=== PATIENT | female | born 1990 | race Caucasian/White ===

== ENCOUNTER → 2017-11-03 09:50 | Outpatient (CLI) | payer OTHER, SELFPAY ==
[2017-11-11 13:32] LABS: AFP 39.9 ng/mL; Brief History NOT GIVEN; Calc Gestational Age 18.4; Hx of Neural Tube Defect N; Inhibin A Value 95 pg/mL; Method of Estimation US; Prev Pregnancy with Down Syndr NOT GIVEN
== END ==
DX: Z34.82 Encounter for supervision of other normal pregnancy, second trimester (principal); Z3A.18 18 weeks gestation of pregnancy
CPT/HCPCS: 36415; 82105; 82677; 84702; 86336

== ENCOUNTER → 2018-01-29 12:00 | Outpatient (CLI) | payer OTHER, SELFPAY ==
[2018-01-29 13:39] LABS: Hematocrit 33.4 % (36-46); Hemoglobin 11.6 g/dL (12.0-16.0)
[2018-01-29 14:14] LABS: GTT (PREG) 1 Hour PP 50gm Dose 91 mg/dL (76-139)
== END ==
DX: Z3A.26 26 weeks gestation of pregnancy (principal)
CPT/HCPCS: 36415; 82950; 85014; 85018

== ENCOUNTER 2018-03-26 11:25 | Inpatient (IN) | payer OTHER, SELFPAY ==
[2018-03-26] VITALS (7 sets, daily range): BP systolic 109–126; BP diastolic 60–79; PULSE 70–85; RESP 11–16; TEMP 36; O2SAT 97
--- NOTE | 2018-03-26 | PATH_ITS ---
[facility] Accession Number: [id number] . 01 Material submitted: . PART A: LEFT FALLOPIAN TUBE SEGMENT PART B: RIGHT FALLOPIAN TUBE SEGMENT . 02 Diagnosis: A-B. Segments of Left and Right Fallopian Tubes (Sterilization Procedure): No significant pathologic change in either specimen. MRV/03/28/2018 . 02 Electronically signed: . Douglas Sykes MD, Pathologist NPI- [id number] . 01 Gross description: . Received two formalin-filled containers, both labeled with the patient's name: . A. In a container labeled left fallopian tube segment, the specimen consists of a 0.4 cm in diameter by 1.0 cm in length, cylindrical shaped portion of tissue, which is inked blue, trisected, and entirely submitted in cassette A. B. In a container labeled right fallopian tube segment, the specimen consists of a 0.4 cm in diameter by 0.4 cm in length, rough, partial cylindrical-shaped portion of tissue, which is inked blue, bisected, and entirely submitted in cassette B. ([id number]) /FRR . 02 Pathologist provided ICD-10: Z30.2 . 02 CPT . 448851, [id number] Specimen Comment: A duplicate report has been generated due to demographic updates. Performed at: 01 [facility] [address] [id number] MD Karri Munoz MD Phone: [phone] Performed at: 02 [facility] [address] [place], [place] [id number] MD Shivam Turcios MD Phone: [phone]
[2018-03-26 12:43] LABS: Add Manual Diff / Slide Review NO; Basophils Percent Auto 0.2 % (0-2); Eosinophils Percent Auto 0.4 % (2-4); Hematocrit 34.5 % (36-46); Hemoglobin 11.9 g/dL (12.0-16.0); Lymphocytes Percent Auto 16.3 % (25-40); Mean Corpuscular HGB Conc 34.6 % (30-36); Mean Corpuscular Hemoglobin 32.7 PG (26-34); Mean Corpuscular Volume 94.5 fL (80-100); Monocytes Percent Auto 7.9 % (3-14); Neutrophils Absolute Auto 5700 /uL (3000-5900); Neutrophils Percent Auto 75.2 % (50-75); Platelet Count 150 X10^3/uL (150-400); Red Blood Cell Count 3.65 X10^6/uL (4.0-5.2); Red Cell Distribution Width 14.3 % (11.6-14.8); White Blood Cell Count 7.6 X10^3/uL (4.5-11.0)
--- NOTE | 2018-03-26 12:52 | SUR.OPER ---
Supine on Padded OR bed, head on pillow, safety belt at thigh, arms secured on padded arm boards at <90 degrees abduction. Bump under right buttock. Legs uncrossed with pillow under knees, gel pad to heels, tape over blanket to lower legs.
[2018-03-26] MEDS: CEFOTETAN 2 GM/50 ML PIGGYBACK IV (13:08)
[2018-03-26] MEDS: LACTATED RINGERS 1,000 ML 100 ML IV ×3 (13:26→16:58)
--- NOTE | 2018-03-26 14:15 | SUR.OPER ---
TOB live female @1330. Cord blood x 2 and placenta to L&D with CREDIT CARD CLERK
--- NOTE | 2018-03-26 14:28 | P.OP_ITS ---
Procedure: Procedures Operation Date: 03/26/18 13:30 Actual Procedures Side Surgeon p Section-Repeat and Bilateral tubal ligation Ishmael Johnson MD Indications: Term intrauterine History of prior section Multiparity desires sterilization Surgeon: Ishmael Johnson Life Assurance Representative: Nikki Izaguirre Anesthesia Type: Spinal Operative Notes Findings: Uterus with anterior adhesion by section scar Live-born female Normal tubes and ovaries Closure Type: primary Specimen(s): left tube and right tube Estimated blood loss (mL): 500 Blood products transfused: none Procedure in detail: Patient was placed supine upon the operating table and spinal anesthesia had been previously placed. The patient was draped and prepared in the usual fashion. The incision was marked. After ascertaining good anesthesia a transverse incision was made. Subcutaneous tissue was incised to the fascia. Fascia was incised with a sharp knife transversely in each direction. The peritoneum was opened and there was an adhesion from the old bladder flap to the abdominal wall which was lysed without difficulty. The bladder was dissected off the lower uterine segment. Transverse scoring incision was made across the uterine segment and perforating session made centrally. Membranes were ruptured. A live-born female was delivered with scores eight at 1 min nine at 5 min in good condition. The placenta was delivered manually without difficulty. The cord had three vessels. Cord blood was obtained. All membranes were massage in the endometrial cavity. The lateral edges of the incision were grasped with Allis Gladwin clamps. The uterine incision was closed in an imbricating fashion using two layer technique with 1. Chromic suture. There was still bleeding from where the adhesion had attached the abdominal wall and a pursestring suture interlocking was then used with good hemostasis. Attention was turned to the fallopian tubes. The right tube was grasped at the isthmic ampullary junction and loop of tube formed. This tube was doubly tied with 0 plain catgut suture and a portion of tube excised. Similar procedure was performed on the left-hand side. Both ovaries appeared to be normal. Parietal perineum was closed with a running two 0 chromic suture. Retroperitoneum was copiously irrigated. The fascia was closed with two continuous 1. Vicryl sutures. Area was copiously irrigated. Subcutaneous tissue was closed in two layers. 1st layer was closed with interrupted three 0 Vicryl suture. 2nd layer was closed with a running horizontal mattress three 0 Vicryl suture. Skin was further approximated with Steri-Strips. Patient tolerated the procedure well. Urine was clear. There was no bleeding at the end of procedure. She was taken to the recovery room in satisfactory condition Post-operative Condition: stable Disposition: PACU Plan for aftercare: 2 obstetric unit
[2018-03-26] MEDS: KETOROLAC 30 MG/ML VIAL IV (21:08)
[2018-03-26] MEDS: OXYCODONE/ACETAMINOPHEN 5/325 TABLET 2 TAB PO (21:25)
[2018-03-27] MEDS: KETOROLAC 30 MG/ML VIAL IV (02:38)
[2018-03-27] MEDS: OXYCODONE/ACETAMINOPHEN 5/325 TABLET 2 TAB PO ×4 (06:18→23:02)
[2018-03-27 07:01] LABS: Hematocrit 30.2 % (36-46); Hemoglobin 10.6 g/dL (12.0-16.0)
--- NOTE | 2018-03-27 07:24 | P.PNOB_ITS ---
Subjective - OB Interval history: Patient is 24 hr post repeat section and bilateral tubal ligation. Her IV has been discontinued and a Hep-Lock placed. Her Justice has been discontinued and she has voided. She is up without assistance. She is eating regular food. She remains afebrile stable vital signs Patient comments: no complaints and pain well controlled baby status: doing well feeding status: exclusively breast feeding Narrative: The patient is 24 hr post repeat section and bilateral tubal ligation. Her IV has been discontinued and a Hep-Lock placed. Her Justice has been discontinued and she has voided. She is up without assistance. She is eating regular food. She remains afebrile stable vital signs. Date Patient Seen: 03/27/18 Time Patient Seen: 07:22 Exam Vital Signs (past 8 hours): Fundus is U minus two Incision looks great. Lochia is scant Oxygen Delivery Method Room Air Objective Labs Result Diagrams: 03/27/18 06:10 Labs: Laboratory Results - last 24 hr 03/26/18 03/26/18 03/27/18 12:20 12:20 06:10 WBC 7.6 RBC 3.65 L Hgb 11.9 L 10.6 L Hct 34.5 L 30.2 L MCV 94.5 MCH 32.7 MCHC 34.6 RDW 14.3 Plt Count 150 Neut % (Auto) 75.2 H Lymph % (Auto) 16.3 L [place] % (Auto) 7.9 Eos % (Auto) 0.4 L Baso % (Auto) 0.2 Neut # (Auto) 5700 Blood Type O Positive Antibody Screen Negative Assessment & Plan Plan day: 1 plan OB: routine postop care Comments: Patient doing well no problems. Has been progressively element of and ambulated. Should be ready for discharge tomorrow Time Spent With Patient Total time spent is greater than 50% in coordination of care (as documented) at patient's floor/unit and/or counseling patient: less than 15 minutes
[2018-03-27] MEDS: DOCUSATE 250 MG CAPSULE PO (08:49)
[2018-03-27] MEDS: PRENATAL VIT,CALC/IRON/FOLIC 1 TABLET 1 TAB PO (08:49)
[2018-03-27] MEDS: IBUPROFEN 600 MG TABLET PO ×3 (08:49→23:03)
[2018-03-28] MEDS: IBUPROFEN 600 MG TABLET PO (06:13)
[2018-03-28] MEDS: OXYCODONE/ACETAMINOPHEN 5/325 TABLET 2 TAB PO ×2 (06:14→10:11)
--- NOTE | 2018-03-28 09:35 | PM.OBDS.1 ---
Discharge Providers Date of admission: 03/26/18 11:25 Primary care physician: Ishmael Johnson MD Consults: 03/26/18 15:09 Consult to School Traffic Supervisor Routine Comment: Discharge provider: Ishmael Johnson MD Discharge Date: 03/28/18 Summary Date Patient Seen: 03/28/18 Time Patient Seen: 09:35 Hospital Course: Patient is a 27-year-old two para two with history of prior section and desire for tubal ligation. And a desire for repeat section. On march the patient underwent a repeat section and bilateral tubal ligation. She was delivered of a live-born female who did well. the patient did well. She remained afebrile with stable vital signs and was progressively L amended and ambulated. She was discharged home for follow-up in two weeks. Peripartum Data Infant Delivery Method: Section Procedures: Repeat low segment section current type Bilateral tubal ligation Karen type complications: none Status at Discharge Functional status at discharge: independent ambulation Overall status at discharge: patient is back to baseline Time Spent with Patient Total time spent providing and/or coordinating discharge services: Less than 30 minutes Objective Labs Result Diagrams: 03/27/18 06:10 Discharge Plan Discharge Plan Patient Disposition: Home Discharge comment: discharge to home Discharge Med Rec/Prescriptions Prescriptions: New oxycodone-acetaminophen 5-325 mg Tablet 1 tab PO Q4HR PRN (Reason: Pain, Moderate (4-6)) Qty: 30 RF: 0 ibuprofen 600 mg Tablet 600 mg PO Q6HR PRN (Reason: As Needed For Fever/Mild Pain) Qty: 20 RF: 0 docusate sodium 250 mg Capsule 250 mg PO DAILY Qty: 20 RF: 0 ferrous gluconate 324 mg (38 mg iron) Tablet 324 mg PO DAILY Qty: 60 RF: 0 [id number] [Prenatabs Rx] 29 mg iron- 1 mg Tablet 1 tab PO DAILY Qty: 90 RF: 0 Discontinued acyclovir 400 mg tablet 400 mg PO DAILY Qty: 90 RF: 2 Follow up/Referrals: Ishmael Johnson MD [Primary Care Provider] - 2 Weeks (Follow-up for Steri-Strip removal) Provider Discharge Instructions Diet: Diet as Tolerated Activity: Up ad cindy May shower Skin/Wound/Dressing Care Report to your healthcare provider any signs of infection, such as:: chills, fever, increased pain and unusual drainage Dressing: Keep Steri-Strips clean and dry Discharge Data Primary Care Provider: Ishmael Johnson Attending Provider: Ishmael Johnson Admit Date/Time: 03/26/18 11:25
[2018-03-28 10:12] VITALS: BP 113/79; PULSE 70; RESP 12; TEMP 36
== END 2018-03-28 11:00 | disposition home or self-care (01) | DRG 785 ==
PROC: 10D00Z1 Extraction of Products of Conception, Low, Open Approach (ICD-10-PCS; CPT 59514; principal; 2018-03-26 13:30)
DX: O34.219 Maternal care for unspecified type scar from previous cesarean delivery (principal); Z3A.39 39 weeks gestation of pregnancy; Z37.0 Single live birth; Z30.2 Encounter for sterilization
CPT/HCPCS: 36415; 59050; 59510; 59514; 85014; 85018; 85025; 86850; 86900; 86901; J1100; J1885; J2274; J2405; J2590; J2765